=== PATIENT | female | born 1995 | race African-American/Black ===

== ENCOUNTER 2021-09-19 07:25 | Emergency (ER) | payer OTHER ==
[~2021-09-19] VITALS: Ht 170.2 cm; Wt 81.4 kg
[2021-09-19 07:34] VITALS: BP 125/75
--- NOTE | 2021-09-19 07:49 | PHYS DOC ---
Past History Additional Past Medical Histor: seasonal allergies Past Surgical History: No Surgical History Alcohol Use: None Adult General Chief Complaint Chief Complaint: SORE THROAT HPI HPI Patient is a 26year old female who presents with complaint of sore throat, cough, and congestion. Patient states that her symptoms started 3 days ago and have been worsening since onset. The patient has had productive cough of whitish mucus. Also notes nasal congestion and postnasal drip. Woke up this morning with hoarseness of voice. Denies fever, chills, body aches, vomiting, or diarrhea. No known sick contacts. Notes history of asthma. States that she uses an inhaler periodically. Currently denies wheezing or chest tightness. Review of Systems Review of Systems Constitutional: Denies fever or chills [] Eyes: Denies change in visual acuity, redness, or eye pain [] HENT: Nasal congestion, hoarseness, sore throat, postnasal drip [] Respiratory: Cough, denies shortness of breath or wheezing [] Cardiovascular: Denies chest pain or edema [] GI: Denies abdominal pain, nausea, vomiting, bloody stools or diarrhea [] : Denies dysuria or hematuria [] Musculoskeletal: Denies back pain or joint pain [] Integument: Denies rash or skin lesions [] Neurologic: Denies headache, focal weakness or sensory changes [] All other systems were reviewed and found to be within normal limits, except as documented in this note. Allergies Allergies Allergies Coded Allergies Type Severity Reaction Last Updated Verified No Known Drug Allergies 09/19/21 No Physical Exam Physical Exam Constitutional: Alert, afebrile, no acute distress. [] HENT: Normocephalic, atraumatic, bilateral external ears normal, oropharynx moist with mild posterior pharyngeal erythema, no oral exudates, boggy nasal mucosa with clear rhinorrhea. [] Eyes: PERRLA, EOMI, conjunctiva normal, no discharge. [] Neck: Normal range of motion, mild anterior cervical lymphadenopathy, supple, no stridor. [] Cardiovascular:Heart rate regular rhythm, no murmur [] Lungs & Thorax: Bilateral breath sounds clear to auscultation [] Abdomen: Bowel sounds normal, soft, no tenderness, no masses, no pulsatile masses. [] Skin: Warm, dry, no erythema, no rash. [] Back: No tenderness, no CVA tenderness. [] Extremities: No tenderness, no cyanosis, no clubbing, ROM intact, no edema. [] Neurologic: Alert and oriented X 3, normal motor function, normal sensory function, no focal deficits noted. [] Current Patient Data Vital Signs Vital Signs Date Time Temp Pulse Resp B/P (MAP) Pulse Ox O2 Delivery O2 Flow Rate FiO2 09/19/21 07:34 98.1 85 16 125/75 (92) 99 Room Air Lab Results Laboratory Tests Test 09/19/21 07:45 Influenza Type A (Rapid) Negative Influenza Type B (Rapid) Negative SARS-CoV-2 Antigen (Rapid) Negative Rapid strep test: Negative Current Medications Medications (Trade) Dose Ordered Sig/Kaden Route PRN Reason Start Time Stop Time Status Last Admin Dose Admin Dexamethasone (Decadron) 8 mg 1X ONCE PO 09/19/21 08:00 09/19/21 08:17 DC 09/19/21 08:10 EKG EKG Not performed [] Radiology/Procedures Radiology/Procedures Not performed [] Heart Score C/O Chest Pain: No Risk Factors: Risk Factors: DM, Current or recent (<one month) smoker, HTN, HLP, family history of CAD, obesity. Risk Scores: Risk Factors: DM, Current or recent (<one month) smoker, HTN, HLP, family history of CAD, obesity. Course & Med Decision Making Course & Med Decision Making Pertinent Labs and Imaging studies reviewed. (See chart for details) Influenza, COVID, and strep testing negative. Examination and findings appear consistent with viral URI. Patient administered one-time oral dose of Decadron in the emergency department. Advised continued supportive care measures at home including rest, hydration, and use of [id number] medications as needed for symptoms. Recommend follow-up with primary care provider in the next 5 to 7 days for reevaluation if symptoms have not improved and return to the emergency department for any worsening symptoms. Patient voiced understanding and in ag reement with treatment plan. [] Dragon Disclaimer Dragon Disclaimer This electronic medical record was generated, in whole or in part, using a voice recognition dictation system. Departure Departure: Impression: Primary Impression: Viral URI with cough Additional Impression: Lab test negative for COVID-19 virus Disposition: HOME / SELF CARE / HOMELESS Condition: STABLE Referrals: PCP,UNKNOWN (PCP) Patient Instructions: Upper Respiratory Infection, Adult Additional Instructions: Return to the emergency department for any worsening symptoms. Scripts Albuterol Sulfate (PROAIR HFA INHALER) 8.5 Gm Hfa.aer.ad 2 PUFF IH Q4-6HRS PRN for wheezing for 21 Days, #1 INHALER 0 Refills Prov: BETH SOLOMON MD 09/19/21 Problem Qualifiers BETH SOLOMON MD September 19, 2021 07:49
[2021-09-19] MEDS ORDERED: DEXAMETHASONE 4 MG TABLET PO ONE (08:00)
[2021-09-19 08:23] LABS: INFLUENZA A PATIENT NEGATIVE (NEGATIVE); INFLUENZA B PATIENT NEGATIVE (NEGATIVE)
[2021-09-19] MEDS ORDERED: ALBU2.5V8 IH (08:34)
== END 2021-09-19 08:43 | disposition home or self-care (01) ==
LOC: ER 07:25
DX: J06.9 Acute upper respiratory infection, unspecified (principal); Z20.822 Contact with and (suspected) exposure to COVID-19
CPT/HCPCS: 87070; 87428; 87880; 99283; J8540